=== PATIENT | male | born 1980 | race Two or more races ===

== ENCOUNTER 2024-02-09 16:52 | Emergency (ER) | payer MEDICAID ==
[~2024-02-09] VITALS: Ht 175.3 cm; Wt 88.6 kg
[2024-02-09] MEDS: ETOMIDATE 2 MG/ML 10 ML VIAL IVP ONE ×3 (20:03→20:54)
[2024-02-09] MEDS: KETOROLAC TROMETHAMINE 30 MG/ML VIAL IVP ONE (20:03)
[2024-02-09] MEDS: ONDANSETRON HCL 4 MG/2 ML VIAL IVP ONE (20:03)
[2024-02-09] MEDS: MORPHINE SULFATE 4 MG/ML SYRINGE IVP ONE (20:03)
[2024-02-09 20:12] VITALS: TEMP 98; O2SAT 99
[2024-02-09] MEDS: OXYGEN THERAPY IH SCH (20:24)
[2024-02-09 21:21] VITALS: BP 134/95; PULSE 71; RESP 18
[2024-02-09] MEDS ORDERED: IBUP-1554 PO (21:58)
[2024-02-09] MEDS ORDERED: HYDR-4062 PO (21:58)
== END 2024-02-09 22:08 | disposition home or self-care (01) ==
LOC: EMS 16:55
DX: S43.004A Unspecified dislocation of right shoulder joint, initial encounter (principal); X58.XXXA Exposure to other specified factors, initial encounter; Y93.89 Activity, other specified; Y92.89 Other specified places as the place of occurrence of the external cause; Y99.8 Other external cause status
CPT/HCPCS: 99285; 23650; 96374; 96375; 73020; 73030; 99152; J3490; J1885; J2270; J2405; 29240